=== PATIENT | male | born 1975 | race Caucasian/White ===

== ENCOUNTER 2018-08-12 21:50 | Inpatient (IN) | payer BC ==
--- NOTE | 2018-08-12 22:40 | ED Physician Chart ---
ED Chief Complaint/HPI - Patient Information Date Seen:: 08/12/18 Time Seen:: 22:20 Chief Complaint:: Abdominal pain since about 3 pm today. History of Present Illness:: Pt came in by private auto because of onset of RUQ abdominal pain since about 3 pm today. Pain is characterized as sharp, constant, and localized. Pain may be aggravated with food ingestion. No known relieving factors. No fever. No N/V/D. Last BM at about 5 pm today that was normal in color/consistency. No hematochezia or melena. No gross hematuria, dysuria, urinary frequency or urgency. Allergies:: Allergies Allergy/AdvReac Type Severity Reaction Status Date / Time No Known Allergies Allergy Verified 08/12/18 22:09 Vitals:: Vital Signs - 8 hr 08/12/18 22:00 Temp 97.3 F HR 86 RR 20 BP 148/96 O2 Sat % 98 Historian:: Patient Family MD/PCP:: unknown LMP:: N/A Review:: Nurse's Note Reviewed ED Review of Systems - Review of Systems General/Constitutional: No fever, No chills, No weight loss, No weakness, No edema, No loss of appetite Skin: No skin lesions, No rash, No bruising Head: No headache, No light-headedness Eyes: No loss of vision, No pain, No diplopia ENT: No earache, No nasal drainage, No sore throat Neck: No neck pain, No swelling, No thyromegaly, No stiffness, No mass noted Cardio Vascular: No chest pain Pulmonary: No SOB, No cough, No wheezing GI: No nausea, No vomiting, No diarrhea, Pain, No melena, No hematochezia, No constipation G/U: No dysuria, No frequency, No hematuria Musculoskeletal: No bone or joint pain Endocrine: No polyuria, No polydipsia Psychiatric: No prior psych history Hematopoietic: No bruising, No lymphadenopathy Allergic/Immuno: No urticaria, No angioedema Neurological: No syncope, No focal symptoms, No weakness, No paresthesia, No headache, No dizziness, No confusion ED Past Medical History - Past Medical History Past Medical History: No significant medical hx Family History: None Social History: Non Smoker, Alcohol (occasional), No Drug Use, , Other ( lives with his mother.) 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 Surgical History: None Psychiatricy History: None Medication: None Family Medical History - Family Member Mother History Unknown: Yes ED Physical Exam - Physical Examination General/Constitutional: Awake, Well-developed, well-nourished (male), Alert, Non -toxic appearing, Ambulatory Other Gen/Cons comments:: Breathes comfortably and speaks clearly. Pt is in severe abdominal pain. He interacts appropriately otherwise. Head: Atraumatic Eyes: Lids, conjuctiva normal, PERRL, EOMI Skin: Nl inspection, No rash, No ecchymosis, Well hydrated, No lymphadenopathy ENMT: External ears, nose nl, Nasal exam nl, Oropharynx nl Neck: Nontender, Full ROM w/o pain, No nuchal rigidity, No mass Respiratory: Nl effort/Exclusion, Clear to Auscultation, No Wheeze/Rhonchi/Rales Cardio Vascular: No murmur, gallop, rubs GI: No organomegaly, Normal BS's, Nondistended, No mass/bruits, No McBurney tenderness Other GI comments:: Tenderness to palpation at RUQ. +/- Levin's sign. Negative Spencer's and Beckham Pinto's signs. No R/G. Abdomen is soft. : No CVA tenderness Extremities: No tenderness or effusion, Full ROM, No edema Neuro/Psych: Alert/oriented (oriented x 3), Judgement/insight normal, Mood normal, No focal deficits Misc: Normal back, No paraspinal tenderness ED Labs/Radiology/EKG Results - Lab Results Results: Laboratory Results - last 24 hr 08/12/18 08/12/18 08/12/18 22:55 22:55 22:55 WBC 11.1 H RBC 5.39 Hgb 16.4 Hct 50.0 MCV 92.7 MCH 30.5 H MCHC Differential 32.9 RDW 12.0 Plt Count 227 MPV 7.7 Neutrophils % 81.7 H Lymphocytes % 14.5 L Monocytes % 3.4 Eosinophils % 0.4 Basophils % 0.0 PT 10.9 INR 1.05 PTT (Actin FS) 27.7 Sodium 136 Potassium 3.4 L Chloride 99 Carbon Dioxide 27.7 Anion Gap 12.7 BUN 12 Creatinine 0.8 Est GFR ( Amer) > 60.0 Est GFR (Non-Af Amer) > 60.0 BUN/Creatinine Ratio 15.0 Glucose 123 H Calcium 9.7 Total Bilirubin 1.1 H AST 31 ALT 25 Alkaline Phosphatase 68 Total Protein 7.7 Albumin 4.5 Globulin 3.2 Albumin/Globulin Ratio 1.4 Amylase 30 Lipase 19 Laboratory Last Values WBC 11.1 Th/cmm (4.8-10.8) H 08/12/18 22:55 RBC 5.39 Mil/cmm (4.30-5.70) 08/12/18 22:55 Hgb 16.4 gm/dL (12-16) 08/12/18 22:55 Hct 50.0 % (41.0-60) 08/12/18 22:55 MCV 92.7 fl (80-99) 08/12/18 22:55 MCH 30.5 pg (26.0-30.0) H 08/12/18 22:55 MCHC Differential 32.9 pg (28.0-36.0) 08/12/18 22:55 RDW 12.0 % (11.5-20.0) 08/12/18 22:55 Plt Count 227 Th/cmm (150-400) 08/12/18 22:55 MPV 7.7 fl 08/12/18 22:55 Neutrophils % 81.7 % (40.0-80.0) H 08/12/18 22:55 Lymphocytes % 14.5 % (20.0-50.0) L 08/12/18 22:55 Monocytes % 3.4 % (2.0-10.0) 08/12/18 22:55 Eosinophils % 0.4 % (0.0-5.0) 08/12/18 22:55 Basophils % 0.0 % (0.0-2.0) 08/12/18 22:55 PT 10.9 SECONDS (9.5-11.5) 08/12/18 22:55 INR 1.05 (0.5-1.4) 08/12/18 22:55 PTT (Actin FS) 27.7 SECONDS (26.0-38.0) 08/12/18 22:55 Sodium 136 mEq/L (136-145) 08/12/18 22:55 Potassium 3.4 mEq/L (3.5-5.1) L 08/12/18 22:55 Chloride 99 mEq/L (98-107) 08/12/18 22:55 Carbon Dioxide 27.7 mEq/L (21.0-31.0) 08/12/18 22:55 Anion Gap 12.7 (7.0-16.0) 08/12/18 22:55 BUN 12 mg/dL (7-25) 08/12/18 22:55 Creatinine 0.8 mg/dL (0.7-1.3) 08/12/18 22:55 Est GFR ( Amer) > 60.0 ml/min (>90) 08/12/18 22:55 Est GFR (Non-Af Amer) > 60.0 ml/min 08/12/18 22:55 BUN/Creatinine Ratio 15.0 08/12/18 22:55 Glucose 123 mg/dL (70-105) H 08/12/18 22:55 Calcium 9.7 mg/dL (8.6-10.3) 08/12/18 22:55 Total Bilirubin 1.1 mg/dL (0.3-1.0) H 08/12/18 22:55 AST 31 U/L (13-39) 08/12/18 22:55 ALT 25 U/L (7-52) 08/12/18 22:55 Alkaline Phosphatase 68 U/L (34-104) 08/12/18 22:55 Total Protein 7.7 gm/dL (6.0-8.3) 08/12/18 22:55 Albumin 4.5 gm/dL (4.2-5.5) 08/12/18 22:55 Globulin 3.2 gm/dL 08/12/18 22:55 Albumin/Globulin Ratio 1.4 (1.0-1.8) 08/12/18 22:55 Amylase 30 U/L (29-103) 08/12/18 22:55 Lipase 19 U/L (11-82) 08/12/18 22:55 Pe Pending lab results to be followed by admitting attending physician: blood cultures, lactic acid level, urinalysis. ED Septic Shock - . Is Septic Shock (SBP<90, OR Lactate>4 mmol\L) present?: No - <6hrs of presentation: Vital Signs: Vital Signs - 8 hr 08/12/18 22:00 Temp 97.3 F HR 86 RR 20 BP 148/96 O2 Sat % 98 ED Reassessment (Disposition) - Reassessment Reassessment:: 2350 Pt has been repeatedly evaluated. Pt's pain has been controlled. Ultrasonography is in progress. 0029 Pt's RUQ abdominal pain recurs. He requests more pain control. Ultrasonographic preliminary report was provided to me by phone per computer operations technician that pt has multiple gallstones with thickened gallbladder wall c/w acute cholecystitis. Official report will not be available until late morning. Available lab and sonographic findings have been reviewed with pt. Management plan has been discussed. Pt is to be given further pain control and empirical antibiotic therapy. 0032 Case was discussed with Dr. Lopez with pertinent info reviewed. Pt is to be admitted to [facility] under his care. Reassessment Condition:: Improved - Diagnosis Diagnosis:: Abdominal pain. Mild hypokalemia. - Patient Disposition Admitted to:: Med/Surg Admitting Medical Physician:: Flro Lopez Time:: 00:35 Condition at Disposition:: Stable
[2018-08-12] MEDS ORDERED: HYDROmorphone 1 mg/mL 1mL Syr IVP STA (22:42)
[2018-08-12] MEDS ORDERED: HYDROmorphone 1 mg/mL 1mL Syr ONE (22:56)
[2018-08-12 23:07] LABS: % EOSINOPHILS 0.4 % (0.0-5.0); % LYMPHOCYTES 14.5 % (20.0-50.0); % MONOCYTES 3.4 % (2.0-10.0); % NEUTROPHILS 81.7 % (40.0-80.0); HEMOGLOBIN 16.4 gm/dL (12-16); LYMPHOCYTE ABSOLUTE 1.6 Th/cmm (1.5-3.0); MEAN CELL VOLUME 92.7 fl (80-99); MEAN CORPUSCULAR HEMOGLOBIN 30.5 pg (26.0-30.0); MEAN CORPUSCULAR HGB CONC 32.9 pg (28.0-36.0); MEAN PLATELET VOLUME 7.7 fl; MONOCYTE ABSOLUTE 0.4 Th/cmm (0.3-1.0); NEUTROPHILE ABSOLUTE 9.1 Th/cmm (1.8-8.0); PLATELET COUNT 227 Th/cmm (150-400); RED BLOOD COUNT 5.39 Mil/cmm (4.30-5.70); WHITE BLOOD COUNT 11.1 Th/cmm (4.8-10.8)
[2018-08-12 23:22] LABS: INR 1.05 (0.5-1.4); PROTHROMBIN TIME (TEST) 10.9 SECONDS (9.5-11.5)
[2018-08-12 23:26] LABS: ALB/GLOB RATIO 1.4 (1.0-1.8); ALBUMIN 4.5 gm/dL (4.2-5.5); ALKALINE PHOSPHATASE 68 U/L (34-104); AMYLASE SERUM 30 U/L (29-103); ANION GAP 12.7 (7.0-16.0); BILIRUBIN,TOTAL 1.1 mg/dL (0.3-1.0); BUN - UREA NITROGEN 12 mg/dL (7-25); CALCIUM SERUM 9.7 mg/dL (8.6-10.3); CARBON DIOXIDE 27.7 mEq/L (21.0-31.0); CHLORIDE 99 mEq/L (98-107); CREATININE - SERUM 0.8 mg/dL (0.7-1.3); GFR AFRICAN-AMERICAN > 60.0 ml/min (>90); GFR NON AFRICAN-AMERICAN > 60.0 ml/min; GLUCOSE 123 mg/dL (70-105); LIPASE 19 U/L (11-82); POTASSIUM SERUM 3.4 mEq/L (3.5-5.1); SGOT 31 U/L (13-39); SGPT/ALT 25 U/L (7-52); SODIUM SERUM 136 mEq/L (136-145); TOTAL PROTEIN,SERUM 7.7 gm/dL (6.0-8.3)
[2018-08-12] MEDS ORDERED: Potassium Chloride 20 mEq ER Tab PO ONE (23:51)
[2018-08-13] MEDS ORDERED: HYDROmorphone 1 mg/mL 1mL Syr IVP STA (00:26)
[2018-08-13] MEDS ORDERED: Potassium Chloride 20 mEq ER Tab PO ONE (00:32)
[2018-08-13] MEDS ORDERED: HYDROmorphone 1 mg/mL 1mL Syr ONE (00:32)
[2018-08-13] MEDS ORDERED: Piperacillin Sodium/Tazobact 3.375 gm Vial IV ONE (00:32)
[2018-08-13] MEDS ORDERED: D5-0.45NS 1,000 ML IV SCH (01:45)
[2018-08-13] MEDS ORDERED: HYDROmorphone 1 mg/mL 1mL Syr IVP PRN (01:45)
[2018-08-13] MEDS: metroNIDAZOLE 500mg/NS 100mL 500 MG/100 ML BAG IV SCH ×2 (04:46→12:06)
[2018-08-13 05:39] LABS: URINE SOURCE RANDOM
[2018-08-13 06:39] LABS: URINE BILIRUBIN NEGATIVE (NEGATIVE); URINE BLOOD NEGATIVE (NEGATIVE); URINE GLUCOSE (UA) NEGATIVE (NEGATIVE); URINE KETONE TRACE mg/dL (NEGATIVE); URINE LEUKOCYTE ESTERASE NEGATIVE (NEGATIVE); URINE MICROSCOPIC INDICATED? YES; URINE NITRATE NEGATIVE (NEGATIVE); URINE PH 7.5 (4.6 - 8.0); URINE PROTEIN TRACE mg/dL (NEGATIVE); URINE UROBILINOGEN 0.2 E.U./dL (0.2 - 1.0)
[2018-08-13 06:41] LABS: URINE CLARITY HAZY (CLEAR); URINE COLOR YELLOW
[2018-08-13 06:42] LABS: URINE AMORPHOUS SEDIMENT MANY URATES (NONE SEEN); URINE BACTERIA FEW /hpf (NONE SEEN); URINE EPITHELIAL CELLS NONE SEEN /lpf (FEW); URINE RBC 0-2 /hpf (0-5)
--- NOTE | 2018-08-13 08:42 | Diagnostic Imaging Report ---
Ultrasound abdomen HISTORY: Abdominal pain COMPARISON: None Technique: Sonography of the abdomen was performed in multiple planes. FINDINGS: The liver demonstrates normal echogenicity with no evidence of focal lesions. The liver measures 15.4 cm. There are multiple gallstones. The gallbladder wall measures 5 mm. No pericholecystic fluid. The CBD measures 2 mm. Evaluation of the pancreas is limited due to bowel gas. The right kidney measures 10.3 x 3.9 cm. No evidence of focal lesions or hydronephrosis. The left kidney measures 11.2 x 4.9 cm. No evidence of focal lesions or hydronephrosis. The spleen measures 9.1 cm. IMPRESSION: Multiple gallstones. The gallbladder wall is also mildly prominent. No pericholecystic fluid. Please correlate clinically if indicated, nuclear medicine HIDA scan may be obtained for further assessment.
[2018-08-13] MEDS ORDERED: cefTRIAXone 1 GM in Sodium Chloride 0.9% 50 ML IV SCH (09:00)
[2018-08-13 09:14] LABS: % BASOPHILS 0.1 % (0.0-2.0); % EOSINOPHILS 0.3 % (0.0-5.0); % LYMPHOCYTES 10.3 % (20.0-50.0); % MONOCYTES 5.6 % (2.0-10.0); % NEUTROPHILS 83.7 % (40.0-80.0); HEMATOCRIT 48.8 % (41.0-60); HEMOGLOBIN 16.4 gm/dL (12-16); LYMPHOCYTE ABSOLUTE 1.3 Th/cmm (1.5-3.0); MEAN CELL VOLUME 92.4 fl (80-99); MEAN CORPUSCULAR HEMOGLOBIN 31.1 pg (26.0-30.0); MEAN CORPUSCULAR HGB CONC 33.7 pg (28.0-36.0); MEAN PLATELET VOLUME 7.6 fl; MONOCYTE ABSOLUTE 0.7 Th/cmm (0.3-1.0); NEUTROPHILE ABSOLUTE 10.8 Th/cmm (1.8-8.0); PLATELET COUNT 216 Th/cmm (150-400); RED BLOOD COUNT 5.28 Mil/cmm (4.30-5.70); WHITE BLOOD COUNT 12.8 Th/cmm (4.8-10.8)
[2018-08-13 09:21] LABS: INR 0.97 (0.5-1.4); PROTHROMBIN TIME (TEST) 10.1 SECONDS (9.5-11.5)
[2018-08-13 09:31] LABS: ALB/GLOB RATIO 1.4 (1.0-1.8); ALBUMIN 4.3 gm/dL (4.2-5.5); ALKALINE PHOSPHATASE 68 U/L (34-104); ANION GAP 10.5 (7.0-16.0); BILIRUBIN,TOTAL 1.4 mg/dL (0.3-1.0); BUN - UREA NITROGEN 10 mg/dL (7-25); CALCIUM SERUM 9.3 mg/dL (8.6-10.3); CARBON DIOXIDE 30.6 mEq/L (21.0-31.0); CHLORIDE 98 mEq/L (98-107); CHOLESTEROL 153 mg/dL (<200); CREATININE - SERUM 0.8 mg/dL (0.7-1.3); GFR AFRICAN-AMERICAN > 60.0 ml/min (>90); GFR NON AFRICAN-AMERICAN > 60.0 ml/min; GLUCOSE 138 mg/dL (70-105); HDL -HIGH DENSITY LIPOPROTEIN 42 mg/dL (23-92); POTASSIUM SERUM 4.1 mEq/L (3.5-5.1); SGOT 27 U/L (13-39); SGPT/ALT 22 U/L (7-52); SODIUM SERUM 135 mEq/L (136-145); TOTAL PROTEIN,SERUM 7.4 gm/dL (6.0-8.3); TRIGLYCERIDES 114 mg/dL (<150)
--- NOTE | 2018-08-13 12:34 | Diagnostic Imaging Report ---
Nuclear medicine HIDA scan HISTORY: Pain, assess for possible cholecystitis COMPARISON: Abdominal ultrasound performed on 08/12/2018 Technique/procedure: 5.3 mCi of technetium labeled Choletec was administered intravenously and multiple scintigraphic images were obtained for up to 2 hours FINDINGS: Prompt hepatic uptake is demonstrated. Small bowel uptake is seen at 20 minutes. Images obtained from to 2 hours demonstrate no evidence of gallbladder uptake. Almost complete hepatic excretion was seen at this point. IMPRESSION: No evidence of gallbladder uptake after 2 hours. Findings may be due to cystic duct obstruction and cholecystitis. Clinical correlation and follow-up recommended.
--- NOTE | 2018-08-13 21:48 | History & Physical ---
ADMIT DATE: 08/13/2018 CHIEF COMPLAINT: Right-sided abdominal pain. HISTORY OF PRESENT ILLNESS: This is a 42-year-old gentleman with no known medical history who presented to the ER after experiencing pain at 3:00 p.m. yesterday soon after eating lunch. Apparently, he had as spicy meal with some peanuts and soon after started experiencing the abdominal pain, mostly located on the right upper quadrant. It was characterized as being sharp, constant, but nonradiating. He denied any nausea, vomiting, diarrhea or constipation. He does admit to a similar episode 2 years ago after eating again a heavy meal, but that episode quickly subsided and was less intense. The patient presented to the ER last evening with pertinent findings included a white count of 11.1 and an abdominal ultrasound showing multiple gallstones. The gallbladder wall is also mildly prominent. No pericholecystic fluid noted. The patient has been admitted to the medical/surgical floor for further management and care. PAST MEDICAL HISTORY: None. PAST SURGICAL HISTORY: None. FAMILY HISTORY: Noncontributory including no history of gallstones. SOCIAL HISTORY: Denies any chronic ETOH. He drinks socially. Nonsmoker and nondrug user. Lives at home with his mom. ALLERGIES: NKDA. OUTPATIENT MEDICATIONS: None. REVIEW OF SYSTEMS: CONSTITUTIONAL: Denies any fever, chills, any recent weight loss. CARDIOVASCULAR: No chest pain or palpitations. PULMONARY: No cough or phlegm production. GASTROINTESTINAL: Please refer to HPI. The patient denies again any nausea, vomiting. No hematemesis noted. No recent black stools or hematochezia. GENITOURINARY: No bladder habit changes. NEUROLOGIC: No changes in vision, no headaches, no syncope. PHYSICAL EXAMINATION: VITAL SIGNS: Temperature 97.2, pulse 78, respirations 19, BP 141/85, satting 98-100% on room air. GENERAL: Well-developed, well-nourished male, not in acute distress. HEAD AND NECK: Normocephalic, atraumatic. Pupils reactive to light. Extraocular movements are intact. Oropharynx moist and clear. CARDIAC: Regular rate and rhythm without any murmurs. LUNGS: Clear to auscultation bilaterally. ABDOMEN: Soft, supple appears to be benign. No obvious tenderness to palpation on the right upper quadrant at this time. There is currently normoactive bowel sounds noted. There are no peritoneal signs. LOWER EXTREMITIES: No pedal edema. LABORATORY DATA: White count 11.1, otherwise chemistry was within normal limits. Potassium 3.4, otherwise chemistry was within normal limits. Glucose 123, total bilirubin 1.1. LFTs were within normal limits. Alkaline phosphatase 68, triglycerides 114. UA was essentially within normal limits. DIAGNOSTICS: Please refer to the HPI. IMPRESSION: 1. Acute cholecystitis. 2. Multiple gallstones. 3. Leukocytosis. PLAN: The patient has been admitted to the medical/surgical floor for further management and care. The patient has been placed on IV fluids, IV antibiotics and other supportive care including Dilaudid for pain control and Zofran for nausea and vomiting. The patient will undergo a HIDA scan to further evaluate for the acute cholecystitis and will await the results of the HIDA to further evaluate for possible surgical consult. In the interim, the patient feels hungry, so a full liquid diet has been ordered. [facility]# [id number]
--- NOTE | 2018-08-13 23:20 | Discharge Summary ---
DATE OF DISCHARGE: 08/13/2018 ADMITTING DIAGNOSES: Acute cholecystitis and leukocytosis. DISCHARGE DIAGNOSES: Acute cholecystitis and leukocytosis. CONSULTANTS: Dr. Vital, General Surgery. MAJOR PROCEDURES: Abdominal ultrasound done on 08/12 showing multiple gallstones with gallbladder also being mildly prominent. No pericholecystic fluid noted. HIDA scan done on 08/13/2018 shows no evidence of gallbladder uptake after 2 hours. Findings may be due to cystic duct obstruction and cholecystitis. BRIEF HOSPITAL COURSE: The patient is a 42-year-old gentleman, who presented to the ER the night before admission with acute onset of right upper quadrant abdominal pain soon after eating a spicy meal. The pain was described as sharp, constant with no radiation to the back or the epigastric area. He did admit to previous similar episode 2 years ago, which was minor in comparison to the one at this time. He denied any nausea, vomiting, any diarrhea, or any unusual p.o. intake. In the ER, his white count was noted to be slightly elevated at 11.1, but his LFTs were noted to be within normal limits. He was admitted to the medical surgical floor, placed on IV antibiotics, IV fluids and IV Protonix. Given his ultrasound result findings, he underwent HIDA scan, which was consistent with acute cholecystitis. His pain subsided with IV Dilaudid and he was able to tolerate a clear liquid diet by the time the surgical consult saw the patient. I made the result available to the patient and discussed with him the possibility of getting a laparoscopic cholecystectomy given his current findings. The patient was also made aware of the situation and the need of a laparoscopic cholecystectomy, but at this time, the patient apparently decided to leave against medical advice, given that he needed to take care of some personal things. MEDICATIONS: On discharge none given, given that he left against medical advice. INSTRUCTIONS: No instructions were given, given that he also left against medical advice. [facility]# [id number]
--- NOTE | 2018-08-14 02:20 | Consultation ---
DATE OF CONSULTATION: 08/13/2018 SURGICAL CONSULTATION TIME: 3:37 p.m. HISTORY OF PRESENT ILLNESS: The patient is a 42-year-old male, healthy prior, admitted for right upper quadrant abdominal pain started earlier today, described as sharp, constant, localized to the right upper quadrant epigastric area, aggravated with food and eating. No known relieving factors. He denies any prior similar attacks. He has no prior knowledge of gallstones. He denies any fevers or chills, diarrhea, or constipation. Denies any nausea or vomiting. Last bowel movement was 5 o'clock earlier. No gross hematuria, dysuria, urinary frequency or urgency. Denies any hematochezia or melena. PAST MEDICAL HISTORY: He has no significant past medical history. PAST SURGICAL HISTORY: He has no significant past surgical history. MEDICATIONS: None. ALLERGIES: No known drug allergies. SOCIAL HISTORY: He denies smoking. Denies recreational drug use. 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 REVIEW OF SYSTEMS: He denies any chest pain or shortness of breath or urinary type symptoms as described above. Rest of his review of systems is negative except for what is described in HPI. PHYSICAL EXAMINATION: VITAL SIGNS: He is 70 kg, BMI 26.6. HEENT AND NECK: Within normal limits. He has no icteric sclerae or jaundice. NECK: He has no JVD or carotid bruits. LUNGS: Clear to auscultation bilaterally. CARDIOVASCULAR: Regular rate. ABDOMEN: Soft. He has some mild right upper quadrant epigastric tenderness to deep palpation, but no guarding, rebound, or generalized peritoneal signs. He has no classic Levin sign. NEUROVASCULAR AND EXTREMITIES: Otherwise normal. No CVA, flank, or paraspinal tenderness. LABORATORY DATA: His white blood cell count 11.1 yesterday, today is 12.8, H and H is 16 and 48.8, platelet count is 216. His sodium is 135, glucose 138, total bilirubin 1.4 up from 1.1. His AST, ALT and alkaline phosphatase are normal. His UA shows 0-2 red blood cell count, few urine bacteria, negative leukocyte esterase. His coags are normal. MEDICATIONS: He is on Rocephin, hydromorphone, Flagyl, Zofran, and Protonix. His abdominal ultrasound reveals multiple gallstones. The gallbladder wall was also mildly prominent at 5 mm. The common bile duct measures 2 mm, no pericholecystic fluid. A HIDA scan was performed, which revealed no gallbladder uptake after 2 hours and suspected acute cholecystitis. IMPRESSION AND PLAN: A 42-year-old male with no significant past medical history with right upper quadrant and epigastric abdominal pain for 1-2 days. States that his pain is currently at about 5/10, mild. He has got some mild tenderness in the epigastric right upper quadrant area. The labs show mild leukocytosis, mild hyperbilirubinemia, but AST, ALT and alkaline phosphatase are normal. He has no pancreatitis. His abdominal ultrasound shows gallstones and possibly mild wall thickening. HIDA scan positive for cystic duct obstruction, non-visualized gallbladder. He is on antibiotics, Rocephin and Flagyl at this time. I did discuss with him the findings of likely acute cholecystitis. I formally recommended a laparoscopic cholecystectomy; however, I explained to him that because of some OR related issues, the operation could not be performed here at [facility] unfortunately. The patient understands the situation. I did discuss with him that plans were being made to transfer him to [facility] to arrange surgery if he was agreeable; however, he states that he is in fact driving his mother's car and he has some home issues that he would like to work out before the surgery, but he is agreeable to the surgery. He would prefer to drop off his car at home, take care of some home related issues and then agreed to present at [facility] later tonight around 10-11 p.m. night and he is agreeable to surgery scheduling for tomorrow as an add-on case as an alternative. I explained to him that we could offer transportation by way of EMS ambulance service, but he declines this at this time in favor of checking himself out against medical advice and in taking care of these things. I told him that once he gets to [facility], I gave him my business card to tell them that I am familiar with this patient's case and would be more than happy to take care of him and arrange surgery, laparoscopic cholecystectomy at [facility] tomorrow. JOB# [id number]
== END 2018-08-13 15:50 | disposition left against medical advice (07) | DRG 446 ==
LOC: ER 21:50 → MSI 08-13 00:50
PROVIDERS: ADMIT Internal Medicine; ATTEND Internal Medicine
DX: K80.01 Calculus of gallbladder with acute cholecystitis with obstruction (principal); E87.6 Hypokalemia
CPT/HCPCS: 36415-UA; 76700-TC; 78226-TC; 80053-TC; 80061-TC; 81001-TC; 82150-TC; 83605; 83690-TC; 83735-TC; 85025-TC; 85610-TC; 90799; 96375; 96376; A9537; C9113; J0696; J1170; J2405; J2543